=== PATIENT | female | born 1950 | race Caucasian/White ===

== ENCOUNTER 2019-06-19 02:48 | Emergency (ER) | payer MEDICARE, OTHER ==
[~2019-06-19] VITALS: Ht 157.5 cm; Wt 79.4 kg
[2019-06-19] MEDS ORDERED: ASPIRIN 81 MG CHEW (CHILDREN'S ASA) PO STA ×2 (02:50→03:14)
[2019-06-19 03:04] LABS: HEMATOCRIT 45 % (35-52); HEMOGLOBIN 15.1 G/DL (11.5-16.0); MEAN CORPUSCULAR HEMOGLOBIN 31 PG (25-34); MEAN CORPUSCULAR HGB CONC 33 G/DL (32-36); MEAN CORPUSCULAR VOLUME 93 FL (80-99); PLATELET COUNT 203 10^3/uL (130-400); WHITE BLOOD COUNT 3.4 10^3/uL (4.3-11.0)
[2019-06-19 03:05] LABS: BASOPHILS % (AUTO) 1 % (0-10); EOSINOPHILS # (AUTO) 0.1 10^3/uL (0.0-0.3); EOSINOPHILS % (AUTO) 4 % (0-10); LYMPHOCYTES # (AUTO) 1.7 X 10^3 (1.0-4.0); LYMPHOCYTES % (AUTO) 51 % (12-44); MEAN PLATELET VOLUME 10.6 FL (7.4-10.4); MONOCYTES # (AUTO) 0.2 X 10^3 (0.0-1.0); MONOCYTES % (AUTO) 5 % (0-12); NEUTROPHILS # (AUTO) 1.4 X 10^3 (1.8-7.8); NEUTROPHILS % (AUTO) 40 % (42-75)
--- NOTE | 2019-06-19 03:13 | ED Chest Pain ---
General Chief Complaint: Chest Pain Stated Complaint: CHEST/STERNUM/BACK PAIN Source: patient, spouse History of Present Illness Date Seen by Provider: Jun 19, 2019 Time Seen by Provider: 02:51 Initial Comments 68-year-old female presenting with complaints of sternal chest pain that is reproducible with palpation. She also had some right sided rib and chest pain. She denies any nausea or vomiting. She's had some pain off and on this weekend. Since around a little before midnight she started having pain in her sternum and states it has been constant since then. She did take 2 baby aspirin before going to bed earlier tonight. She decided because of the pain in her side of her chest as well as the sternum she would come in to be checked out. She had something similar several years ago and came in and found out that it was more pain in her chest wall. She does not feel that it is heart related that was concerned it might be so came to be checked out. She has a family history of her mom having "angina" , but she personally has never had any heart problems. She has been picking beans in the garden and then stooping over the sink to snap the beans this weekend so is not sure if that has caused her symptoms or not. Allergies and Home Medications Allergies Coded Allergies: No Known Drug Allergies (Unverified , 06/19/19) Patient Home Medication List Home Medication List Reviewed: Yes Review of Systems Review of Systems Constitutional: No chills, No diaphoresis, No dizziness, No fever, No malaise EENTM: Nose Congestion; No Throat Pain, No Throat Swelling Respiratory: Cough Cardiovascular: Chest Pain (sternum and right rib and chest wall pain, reproducible with palpation) Gastrointestinal: No Symptoms Reported; Denies Nausea Genitourinary: No Symptoms Reported Musculoskeletal: see HPI Skin: no symptoms reported Psychiatric/Neurological: No Symptoms Reported Endocrine: No Symptoms Reported Past Vvwxnkt-[id number]-Nqrrvi Hx Past Med/Social Hx: Reviewed Nursing Past Med/Soc Hx Patient Social History Alcohol Use: Denies Use Recreational Drug Use: No Smoking Status: Never a Smoker 2nd Hand Smoke Exposure: No Recent Hopitalizations: No Seasonal Allergies Seasonal Allergies: No Past Medical History Surgeries: Yes Hysterectomy Respiratory: No Cardiac: No Neurological: No Genitourinary: No Gastrointestinal: No Musculoskeletal: No Endocrine: No HEENT: No Cancer: No Psychosocial: No Integumentary: No Blood Disorders: No Physical Exam Vital Signs Vital Signs - First Documented 06/19/19 02:59 Temp 97.2 Pulse 72 Resp 15 B/P (MAP) 179/85 (116) Pulse Ox 93 O2 Delivery Room Air Capillary Refill : Height, Weight, BMI Height: '" Weight: lbs. oz. kg; BMI Method: General Appearance: No Apparent Distress, WD/WN HEENT: PERRL/EOMI, Normal ENT Inspection, Pharynx Normal Neck: Full Range of Motion, Normal Inspection, Non Tender, Supple Respiratory: Chest Non Tender, Lungs Clear, Normal Breath Sounds, No Accessory Muscle Use, No Respiratory Distress Cardiovascular: Regular Rate, Rhythm, No Edema, No JVD, No Murmur, Normal Per ipheral Pulses Gastrointestinal: Normal Bowel Sounds, No Pulsatile Mass, Non Tender, Soft, Other (negative berman's sign) Extremity: Normal Capillary Refill, Normal Inspection, Normal Range of Motion, Non Tender, No Calf Tenderness Neurologic/Psychiatric: Alert, Oriented x3, No Motor/Sensory Deficits Skin: Normal Color, Warm/Dry Progress/Results/Core Measures Results/Orders Lab Results Laboratory Tests Test 06/19/19 02:55 06/19/19 03:55 Range/Units White Blood Count 3.4 L 4.3-11.0 10^3/uL Red Blood Count 4.85 4.35-5.85 10^6/uL Hemoglobin 15.1 11.5-16.0 G/DL Hematocrit 45 35-52 % Mean Corpuscular Volume 93 80-99 FL Mean Corpuscular Hemoglobin 31 25-34 PG Mean Corpuscular Hemoglobin Concent 33 32-36 G/DL Red Cell Distribution Width 13.0 10.0-14.5 % Platelet Count 203 130-400 10^3/uL Mean Platelet Volume 10.6 H 7.4-10.4 FL Neutrophils (%) (Auto) 40 L 42-75 % Lymphocytes (%) (Auto) 51 H 12-44 % Monocytes (%) (Auto) 5 0-12 % Eosinophils (%) (Auto) 4 0-10 % Basophils (%) (Auto) 1 0-10 % Neutrophils # (Auto) 1.4 L 1.8-7.8 X 10^3 Lymphocytes # (Auto) 1.7 1.0-4.0 X 10^3 Monocytes # (Auto) 0.2 0.0-1.0 X 10^3 Eosinophils # (Auto) 0.1 0.0-0.3 10^3/uL Basophils # (Auto) 0.0 0.0-0.1 10^3/uL Prothrombin Time 12.7 12.2-14.7 SEC INR Comment 0.9 0.8-1.4 Activated Partial Thromboplast Time 25 24-35 SEC Sodium Level 143 135-145 MMOL/L Potassium Level 3.4 L 3.6-5.0 MMOL/L Chloride Level 100 98-107 MMOL/L Carbon Dioxide Level 29 21-32 MMOL/L Anion Gap 14 5-14 MMOL/L Blood Urea Nitrogen 9 7-18 MG/DL Creatinine 0.66 0.60-1.30 MG/DL Estimat Glomerular Filtration Rate > 60 BUN/Creatinine Ratio 14 Glucose Level 119 H 70-105 MG/DL Calcium Level 9.5 8.5-10.1 MG/DL Corrected Calcium 9.3 8.5-10.1 MG/DL Magnesium Level 2.4 1.6-2.4 MG/DL Total Bilirubin 1.6 H 0.1-1.0 MG/DL Aspartate Amino Transf (AST/SGOT) > 1206 H 5-34 U/L Alanine Aminotransferase (ALT/SGPT) > 920 H 0-55 U/L Alkaline Phosphatase 159 H 40-136 U/L Troponin I < 0.30 <0.30 NG/ML Pro-B-Type Natriuretic Peptide 179.8 H <75.0 PG/ML Total Protein 7.1 6.4-8.2 GM/DL Albumin 4.3 3.2-4.5 GM/DL Lipase 26 8-78 U/L My Orders Orders - RADAMES MCADAMS MD Cbc With Automated Diff (06/19/19 02:50) Magnesium (06/19/19 02:50) Chest 1 View Ap/Pa Only (06/19/19 02:50) Ekg Tracing (06/19/19 02:50) Comprehensive Metabolic Panel (06/19/19 02:50) Protime With Inr (06/19/19 02:50) Partial Thromboplastin Time (06/19/19 02:50) O2 (06/19/19 02:50) Monitor-Rhythm Ecg Trace Only (06/19/19 02:50) Ed Iv/Invasive Line Start (06/19/19 02:50) Troponin I (06/19/19 02:50) Probnp Fs (06/19/19 02:50) Ketorolac Injection (Toradol Injection) (06/19/19 03:15) Aspirin Chewable Tablet (Baby Aspirin Ch (06/19/19 03:14) Ct Abdomen/Pelvis W (06/19/19 03:36) Iohexol Injection (Omnipaque 350 Mg/Ml 1 (06/19/19 03:45) Received Contrast (Hold Metformin- Contr (06/19/19 03:45) Ns (Ivpb) (Sodium Chloride 0.9% Ivpb Bag (06/19/19 03:45) Lipase (06/19/19 04:30) Medications Given in ED Current Medications Medications Dose Ordered Sig/Staci Route Start Time Stop Time Status Last Admin Dose Admin Iohexol 100 ml ONCE ONCE IV 06/19/19 03:45 06/19/19 03:46 DC 06/19/19 03:51 100 ML Ketorolac Tromethamine 30 mg ONCE ONCE IVP 06/19/19 03:15 06/19/19 03:16 DC 06/19/19 03:19 30 MG Sodium Chloride 100 ml ONCE ONCE IV 06/19/19 03:45 06/19/19 03:46 DC 06/19/19 03:51 100 ML Vital Signs/I&O 06/19/19 06/19/19 02:59 03:10 Temp 97.2 Pulse 72 Resp 15 B/P (MAP) 179/85 (116) Pulse Ox 93 O2 Delivery Room Air Room Air Progress Progress Note #1: Progress Note check labs and ECG with CXR. Since she has reproducible pain with palpation will try toradol and give aspirin but just 182 since she already took 2 at home. Progress Note #2: Progress Note ECG does not show acute ST elevation. Her CXR is clear of infiltrate or effusion. Her CBC shows mildly low WBC count at 3.4 and elevated Lymphocyte count to go with possible viral infection. Chemistry panel shows normal renal function and negative troponin after at least 3 hours of constant reproducible chest pain. Her LFTs however are greatly elevated with ALT and AST over 1200 and over 900. She has Total Bili of 1.6. She denies n/v and has no pain in RUQ and negative Berman's sign on exam. Her sternal chest pain is resolved after toradol. Will add on CT scan to further evaluate her elevated LFTs. She states she has been drinking Apple C[employer] Vinegar water. She was not sure if that would cause the LFTs to be so elevated. I informed her that I was not aware of that causing the LFTs to jump this high. Progress Note #3: Progress Note On my review of her CT scan of abdomen/pelvis she has enlarged gallbladder with multiple gallstones. There appears to be pericholecystic fluid as well. Awaiting Radiology reading of the CT scan. Progress Note #4: Progress Note When discussing the results of the CT with the patient and her spouse I advised her that it would be best to go to see a surgeon and that she might need to have her gallbladder removed later today. She stated that she would not be doing that and she is going to go home and speak to her primary provider, Dr. Osorio, and her brother, a radiologist in , before she would go anywhere or have any surgery done. Her called her brother and had me speak to him on the phone and I discharged her AGAINST MEDICAL ADVICE to home. She stated that she understands she could get worse and that she may need to be seen emergently if she has more problems or worsening pain or develops n/v. She still wishes to go AMA. Initial ECG Impression Date: Jun 19, 2019 Initial ECG Impression Time: 02:52 Initial ECG Rate: 70 Initial ECG Comparisson: No Previous ECG Available Comment Normal sinus rhythm with a heart rate of 70 bpm. QT interval 441 ms. QT corrected interval 4 and 76 ms. There is no acute ST elevation. There is no prior tracing for comparison. She does have some artifact. Diagnostic Imaging Diagonstic Imaging: Xray Plain Films/CT/US/NM/MRI: chest Comments No acute process. No infiltrate or cardiomegaly. Reviewed: Reviewed by Me Diagonstic Imaging: CT Plain Films/CT/US/NM/MRI: abdomen, pelvis Comments Findings suspicious for cholecystitis given thickened wall, possible pericholecystic fluid, and multiple stones. Colonic diverticulosis. Read by Dr. Colin Renteria MD at 0436 AM and faxed at 0443 AM Reviewed: Reviewed Night [facility] Study Departure Impression Primary Impression: Cholecystitis, acute with cholelithiasis Qualified Codes: K80.01 - Calculus of gallbladder with acute cholecystitis with obstruction Additional Impressions: Elevated liver function tests Sternum sprain Qualified Codes: S23.429A - Unspecified sprain of sternum, initial encounter Disposition: 07 AGAINST MEDICAL ADVICE Condition: Stable Departure-Patient Inst. Decision time for Depature: 05:14 Referrals: ASHLEY OSORIO DO Patient Instructions: Chest Pain That Is Not Caused by the Heart (DC), Costochondritis (DC), Gallstones (DC), Leaving Against Medical Advice, Liver Function Test Add. Discharge Instructions: Follow up with your doctor as soon as possible about the elevated Liver enzymes, gallstones and inflammation around the gallbladder. If you have worsening pain or develop nausea and vomiting or fever over 101 F then seek medical care immediately. All discharge instructions reviewed with patient and/or family. Voiced understanding. RADAMES MCADAMS MD Jun 19, 2019 03:13
[2019-06-19] MEDS ORDERED: KETOROLAC 30 MG/ML VIAL IVP ONE (03:15)
[2019-06-19 03:16] LABS: INR 0.9 (0.8-1.4); PROTHROMBIN TIME PATIENT 12.7 SEC (12.2-14.7)
[2019-06-19 03:22] LABS: BILIRUBIN,TOTAL 1.6 MG/DL (0.1-1.0); CALCIUM 9.5 MG/DL (8.5-10.1); CARBON DIOXIDE 29 MMOL/L (21-32); CHLORIDE 100 MMOL/L (98-107); GLUCOSE 119 MG/DL (70-105); MAGNESIUM 2.4 MG/DL (1.6-2.4); POTASSIUM 3.4 MMOL/L (3.6-5.0); SODIUM 143 MMOL/L (135-145)
[2019-06-19 03:23] LABS: TOTAL PROTEIN 7.1 GM/DL (6.4-8.2)
[2019-06-19 03:25] LABS: ALANINE AMINOTRANSFERASE > 920 U/L (0-55); ALBUMIN 4.3 GM/DL (3.2-4.5); ALKALINE PHOSPHATASE 159 U/L (40-136); BUN/CREATININE RATIO 14; CREATININE SERUM 0.66 MG/DL (0.60-1.30); GFR ESTIMATED > 60
[2019-06-19] MEDS ORDERED: HOLD METFORMIN - RECEIVED CONTRAST 20 ML VIAL IV SCH (03:45)
[2019-06-19] MEDS ORDERED: NS 100 ML (IVPB) BAG IV ONE (03:45)
[2019-06-19] MEDS ORDERED: IOHEXOL 350 MG/ML 100 ML (OMNIPAQUE 350) VIAL IV ONE (03:45)
[2019-06-19 05:24] VITALS: BP 169/78
--- NOTE | 2019-06-19 06:02 | Diagnostic Imaging Report ---
PROCEDURE: CT abdomen and pelvis with contrast. TECHNIQUE: Multiple contiguous axial images were obtained through the abdomen and pelvis after administration of intravenous contrast. Auto Exposure Controls were utilized during the CT exam to meet ALARA standards for radiation dose reduction. INDICATION: 3 days history of chest and back pain. FINDINGS: Multiple stones within the lumen of the gallbladder. The gallbladder wall appears thickened and there is pericholecystic edema and likely trace pericholecystic fluid. While the gallbladder is not substantially overdistended, the findings are suspicious for acute cholecystitis. There is no dilatation of the intrahepatic bile ducts. Common bile duct measured 7.1 mm maximal. No radiodense stone within the lumen of the extrahepatic duct. The adrenals, spleen, pancreas all negative. The kidneys are unobstructed. There is no appendicitis or diverticulitis. There is no bowel obstruction. The uterus absent. There is no adnexal lesion. Urinary bladder normal. There are degenerative changes to the spine. IMPRESSION: 1. Findings suspicious for acute cholecystitis with upper limits of caliber extrahepatic duct. No visualized choledocholithiasis or intrahepatic dilatation. 2. No other suspected acute abnormality. Dictated by: Dictated on workstation # [id number]
--- NOTE | 2019-06-19 07:03 | Diagnostic Imaging Report ---
INDICATION: Pain. FINDINGS: Lungs are clear. Heart and vessels normal. No effusion or pneumothorax. IMPRESSION: Negative. Dictated by: Dictated on workstation # [id number]
== END 2019-06-19 05:24 | disposition left against medical advice (07) ==
LOC: ER FS 02:52
DX: S23.429A Unspecified sprain of sternum, initial encounter (principal); K80.00 Calculus of gallbladder with acute cholecystitis without obstruction; R94.5 Abnormal results of liver function studies; Z90.710 Acquired absence of both cervix and uterus; X58.XXXA Exposure to other specified factors, initial encounter
CPT/HCPCS: 36415; 71045; 74177; 80053; 83690; 83735; 83880; 84484; 85025; 85610; 85730; 93005